=== PATIENT | female | born 1980 | race Caucasian/White ===

== ENCOUNTER → 2022-05-29 | Outpatient (CLI) | payer BC, SELFPAY ==
[2022-05-29 16:29] LABS: Erythrocyte Sedimentation Rate 2 mm/hr (0-30)
[2022-05-29 16:33] LABS: CRP < 2.90 mg/L (0.0-3.0)
[2022-05-31 15:08] LABS: Cytoplasmic Ab (C-ANCA) <1:20 titer (Neg:<1:20); Endomysial Antibody IgA Negative (Negative); Immunoglobulin A 245 mg/dL (87-352)
[2022-05-31 15:49] LABS: Perinuclear Ab (P-ANCA) <1:20 titer (Neg:<1:20); t-Transglutaminase IgA <2 U/mL (0-3)
[2022-05-31 16:08] LABS: Anti-Centromere B Ab <0.2 AI (0.0-0.9); Anti-Chromatin <0.2 AI (0.0-0.9); Anti-Jo <0.2 AI (0.0-0.9); Anti-Scleroderma-70 AB <0.2 AI (0.0-0.9); RNP Ab <0.2 AI (0.0-0.9); SJOGREN'S Anti-SS-A test < 0.2 AI (0.0-0.9); SJOGREN'S Anti-SS-B test < 0.2 AI (0.0-0.9); Smith Ab <0.2 AI (0.0-0.9)
[2022-05-31 20:52] LABS: Anti-dsDNA Ab 1 IU/mL (0-9)
== END | disposition home or self-care (01) ==
LOC: LAB 14:57
PROVIDERS: PCP Nurse Practitioner Primary Care; Visit Provider Nurse Practitioner Adult Health
DX: K90.0 Celiac disease (principal)
CPT/HCPCS: 36415; 82784; 83516; 85652; 86140; 86225; 86235; 86255; 86256

== ENCOUNTER → 2022-07-02 | Outpatient (CLI) | payer BC, SELFPAY ==
--- NOTE | 2022-07-02 13:04 | US_ITS ---
STUDY: ULTRASOUND OF THE FEMALE PELVIS - COMPLETE REASON FOR EXAM: Female, 41 years old. Menorrhagia LMP: 06/17/2022. TECHNIQUE: Transabdominal and Transvaginal TECHNICAL QUALITY: Adequate. COMPARISON: None. FINDINGS: The uterus is anteverted and is in a midline position. The uterus is enlarged and measures 11.2 cm x 6.7 cm x 5.5 cm. Normal uterine cervix. The endometrium measures 8.0 mm in thickness, and is heterogeneous (striated). There is no demonstrated endometrial mass. There is no demonstrated myometrial mass. I.U.D. - The patient does not have an I.U.D. The right ovary is visualized. The right ovary measures 3.5 cm x 3.9 cm x 1.8 cm. There is no right ovarian cyst or ovarian mass. There is no visualized right adnexal mass or complex lesion. There is normal arterial and normal venous vascularity. The left ovary is visualized. The left ovary measures 3.5 cm x 3.3 cm x 3.2 cm. There is no left ovarian cyst or ovarian mass. There is no visualized left adnexal mass or complex lesion. There is normal arterial and normal venous vascularity. There is no fluid in the cul-de-sac. The pre void volume of the bladder was 422 ml. US/Pelvic (Non ) IMPRESSION: Mild enlargement of the uterus. Electronically Signed: Johnnie Rosales MD at 15:28 EST ,
== END | disposition home or self-care (01) ==
PROVIDERS: PCP Nurse Practitioner Primary Care; Visit Provider Obstetrics & Gynecology
DX: N92.0 Excessive and frequent menstruation with regular cycle (principal); K62.5 Hemorrhage of anus and rectum; D50.0 Iron deficiency anemia secondary to blood loss (chronic)
CPT/HCPCS: 76830; 76856

== ENCOUNTER → 2022-07-19 | Outpatient (CLI) | payer BC, SELFPAY ==
[2022-07-22 15:08] LABS: Cytoplasmic Ab (C-ANCA) <1:20 titer (Neg:<1:20)
[2022-07-22 20:38] LABS: Perinuclear Ab (P-ANCA) <1:20 titer (Neg:<1:20)
== END | disposition home or self-care (01) ==
PROVIDERS: PCP Nurse Practitioner Primary Care; Visit Provider Nurse Practitioner Adult Health
DX: R76.8 Other specified abnormal immunological findings in serum (principal)
CPT/HCPCS: 36415; 86256

== ENCOUNTER 2022-07-29 11:21 | Day surgery (SDC) | payer BC, SELFPAY ==
[2022-07-29 11:47] LABS: Internal QC Validated? YES +Cl - CLEAR BKGD; Pregnancy, Urine Negative Negative
[2022-07-29] MEDS: Lactated Ringers 1,000 ML 15 ML IV (11:56)
[2022-07-29 11:58] VITALS: BP 108/59; PULSE 72; RESP 18; TEMP 36.9; O2SAT 100; BMI 23.8
--- NOTE | 2022-07-29 11:59 | HP.PCM_ITS ---
History and Physical Date of Admission: 07/29/22 41 F who presents to the office today referred by hematology for chronic iron deficiency anemia. She reports a lifelong hx of anemia, due to longstanding menorrhagia. More recently she had bright red blood with stools when she was constipated from oral iron. Had pain from passing large, hard stools at that time. No external hemorrhoids. She is interested in having a hysterectomy; has appt to establish with [facility] in 06/2022. In addition to the anemia, she feels a gynecological/hormonal issue may be contributing to her depression and skin concerns. Received IV iron March 2022. Continues to take oral iron once daily. Currently bowels are regular, helps to drink tea. Didn't tolerate miralax, tore my stomach up. No nausea, vomiting, heartburn, dysphagia, abd pain, diarrhea. Diagnosed with celiac disease about 7 yrs ago. Gets abd pain if she consumes gluten so she is very careful with her diet. She also avoids dairy. She is very fatigued. Only medication is ferrous sulfate, and stool softener as needed. 03/18/22 labs: vit b12 346, folate 3.9 05/08/22 labs: hgb 12.0, iron 97, ferr 39 ROS Const Constitutional: Positive for fatigue ENT ENT: No difficulty swallowing Gastro GI: Positive for abdominal pain, constipation and Blood in stool; No belching, bloating, change in bowel habits, change in stool character, coffee ground emesis, cramping, diarrhea, heartburn, difficulty swallowing, feeling full early, excessive flatus, incontinent of stools, Vomiting blood/hematemesis, loose stools, Black,tarry stools, nausea/dyspepsia, pain with swallowing, vomiting or other Musc Musculoskeletal: No joint pain Skin Skin: No yellowing of the eye or itchy eyes Psych Psychiatric: No anxiety and No depression Endo Endocrine: Positive for fatigue Aller/Imm Allergy/Immunologic: No itchy eyes Sergo/Lymp Hematologic/Lymphatic: No easy bleeding or easy bruising Exam Const General: cooperative and comfortable Nutritional Appearance: average body habitus Orientation: alert, awake and oriented x3 HENMT Head: normal to inspection Resp Effort & Inspection: normal respiratory effort GI Inspection: normal to inspection Quality Reporting Tobacco Screening ([facility] 138) Smoking Status: Former smoker Assessment and Plan Assessment and Plan (1) Celiac disease: ?Status:?Acute ?Plan: 41 yr old female with iron deficiency anemia that may be due to menorrhagia, recent rectal bleed with constipation due to PO iron, celiac disease. Schedule EGD and colonoscopy to eval for gastritis, PUD, celiac changes, polyps, colitis, hemorrhoids or other as cause of anemia. Labs to check celiac, inflammatory markers, VIVEK-comprehensive, ANCA; will call her with results f/u 2 wks after endoscopies (2) Rectal bleed: ?Status:?Chronic ?Plan: as above (3) Iron deficiency anemia due to chronic blood loss: ?Status:?Chronic ?Plan: as above ? ? ? Orders: Orders CRP Today K90.0 - Celiac disease ? Erythrocyte Sed Rate Today K90.0 - Celiac disease ? VIVEK Comprehensive Panel Today K90.0 - Celiac disease ? ANCA Today K90.0 - Celiac disease ? Celiac Disease Profile Today K90.0 - Celiac disease ? I have examined the patient and the H&P has been reviewed. There are no clinical changes since date of exam.
--- NOTE | 2022-07-29 12:30 | IMM_PTH ---
PATIENT: ZULEMA GARDNER LOC: EN U#:[id number] AGE/SX: 41/F ROOM: RE07/29/[address]: Dr. Jordy Connors DO : 1980 BED: DIS: 07/29/2022 SPEC #: [id number] RECD: 07/30/22 09:29 STATUS: TEQUILA REQ #: [id number] HAILEY: 07/29/22 12:[address]: Jordy Connors DEPT: IMMUNOHISTOCHEMISTRY RECD BY: Gini Lambert ENTERED: 07/30/22 09:29 SP TYPE: IMMUNO OTHR DR: Lalita Ortiz, LYMPHEDEMA THERAPIST-C Tissues: A - Stomach, NOS Procedures: H Pylori (initial) PHYSICIAN & INSTITUTION [place] [id number] SPECIMEN INFORMATION: Tissue Source: A ? Gastric biopsy Clinical Info: Celiac disease, rectal bleed, iron deficiency anemia Specimen Number: [id number] CPT code: 40981 METHODOLOGY: Deparaffinized sections of prefer/formalin-fixed tissue or PAP/DQ stained slides are incubated with monoclonal/polyclonal antibodies/oligonucleotide probes. Localization is made via biotin free immunoperoxidase method. Appropriate controls are performed and reacted as expected. Results on target cell population are indicated in the following table: RESULTS: ANTIBODY / CLONE RESULT Block A H Pylori (polyclonal) negative These tests were developed and their performance characteristics determined by [facility]. They may not have been cleared or approved by the U.S. Food and Drug Administration. The FDA has determined that such clearance or approval is not necessary. The above immunohistochemical/dualISH markers are ordered and reviewed by the Pathologist. INTERPRETATION: A. Gastric biopsy: Negative for Helicobacter pylori organisms. DEEDEE:eugenio 07/31/2022
--- NOTE | 2022-07-29 12:30 | EGD_PTH ---
PATIENT: ZULEMA GARDNER LOC: EN U#:[id number] AGE/SX: 41/F ROOM: RE07/29/[address]: Dr. Jordy Connors DO : 1980 BED: DIS: 07/29/2022 SPEC #: [id number] RECD: 07/29/22 13:51 STATUS: TEQUILA REQ #: [id number] HAILEY: 07/29/22 12:[address]: Jordy Connors DEPT: SURGICAL PATHOLOGY RECD BY: Shena Montano ENTERED: 07/30/22 08:30 SP TYPE: EGD BIOPSY OT DR: Lalita Ortiz, VETERINARY TECHNOLOGIST-C Tissues: A - Gastric mucous membrane B - Duodenum, NOS Procedures: Surgery Specimen Level IV HEADER OPERATION: Colonoscopy, EGD ([facility] [place]), pill camera placement and biopsy PRE-OP DIAGNOSIS: Celiac disease, rectal bleed, iron deficiency anemia TISSUE SUBMITTED: A ? Gastric biopsy and H. pylori and path, B ? Duodenum biopsy MICROSCOPIC DIAGNOSIS A. Gastric biopsy: Mild gastritis. See microscopic description and comment. B. Duodenum, biopsy: A fragment of duodenal mucosa, no pathologic diagnosis. See microscopic description and comment. SJ:euegnio 07/31/2022 COMMENT A. The results of immunohistochemistry for Helicobacter pylori will be reported separately ([id number]). B. A minute fragment of benign gastric mucosa is also noted in the specimen. MICROSCOPIC DESCRIPTION Slides are reviewed. A & B. The specimen shows fragments of gastric mucosa with chronic inflammatory cell infiltrates in the lamina propria consisting of lymphocytes and plasma cells, consistent with mild chronic gastritis. GROSS DESCRIPTION A - Received in fixative is one container labeled with the patient's name and designated gastric biopsy. The specimen consists of one irregular fragment of light barreto soft tissue that measures 0.5 x 0.5 x 0.1 cm. The specimen is totally submitted in one cassette. B - Received in fixative is one container labeled with the patient's name and designated duodenum biopsy. The specimen consists of two irregular fragments of light barreto soft tissue that in aggregate measure 0.7 x 0.5 x 0.1 cm. The specimen is totally submitted in one cassette. / AM:eugenio 07/30/2022 TC:3 CPT: 82721 x2
[2022-07-29 13:20] VITALS: BP 108/59; BP 92/63; PULSE 89; RESP 16; TEMP 36.2; O2SAT 96
[2022-07-29 13:25] VITALS: BP 108/59; BP 95/71; PULSE 90; RESP 16; O2SAT 99
--- NOTE | 2022-07-29 13:25 | OP.EGD_ITS ---
Patient Name: Sulma Reza Procedure Date: 07/29/2022 12:38 PM Date of : 1980 Age: 41 Procedure: Upper GI endoscopy Indications: Epigastric abdominal pain Providers: Jordy Connors DO Medicines: Monitored Anesthesia Care Patient Profile: This is a 41 year old female. Refer to note in patient chart for documentation of history and physical. Patient has symptoms of chronic abdominal cramping and chronic epigastric abdominal pain. Complications: No immediate complications. Procedure: Pre-Anesthesia Assessment: - Prior to the procedure, a History and Physical was performed, and patient medications and allergies were reviewed. The patient is competent. The risks and benefits of the procedure and the sedation options and risks were discussed with the patient. All questions were answered and informed consent was obtained. Patient identification and proposed procedure were verified by the physician in the pre-procedure area. Mental Status Examination: alert and oriented. Respiratory Examination: clear to auscultation. CV Examination: normal. Prophylactic Antibiotics: The patient does not require prophylactic antibiotics. Prior Anticoagulants: The patient has taken no previous anticoagulant or antiplatelet agents. After reviewing the risks and benefits, the patient was deemed in satisfactory condition to undergo the procedure. The anesthesia plan was to use minimal sedation / analgesia (anxiolysis). Immediately prior to administration of medications, the patient was re-assessed for adequacy to receive sedatives. The heart rate, respiratory rate, oxygen saturations, blood pressure, adequacy of pulmonary ventilation, and response to care were monitored throughout the procedure. The physical status of the patient was re-assessed after the procedure. After obtaining informed consent, the endoscope was passed under direct vision. Throughout the procedure, the patient's blood pressure, pulse, and oxygen saturations were monitored continuously. The gastroscope was introduced through the mouth, and advanced to the second part of duodenum. The upper GI endoscopy was accomplished without difficulty. The patient tolerated the procedure well. Findings: The examined esophagus was normal. The entire examined stomach was normal. The cardia and gastric fundus were normal on retroflexion. Patchy mild inflammation characterized by erosions and erythema was found in the duodenal bulb, in the first portion of the duodenum and in the second portion of the duodenum. Biopsies were taken with a cold forceps for histology. Verification of patient identification for the specimen was done. Estimated blood loss was minimal. Using the endoscope, the video capsule enteroscope was advanced into the first portion of the duodenum. The video capsule was positioned 60 cm from the incisors. Estimated blood loss was minimal. Localized mild inflammation characterized by erosions and erythema was found in the gastric body. Biopsies were taken with a cold forceps for histology. Verification of patient identification for the specimen was done. Estimated blood loss was minimal. Impression: - Normal esophagus. - Normal stomach. - Duodenitis. Biopsied. - Successful completion of the Video Capsule Enteroscope placement. Recommendation: - Discharge patient to home. - Resume previous diet. - Continue present medications. - Await pathology results. Procedure Code(s): --- Professional --- 95843, Esophagogastroduodenoscopy, flexible, transoral; with biopsy, single or multiple CPT copyright 2017 [employer]. All rights reserved. The codes documented in this report are preliminary and upon spreader review may be revised to meet current compliance requirements. Jordy Connors DO 07/29/2022 1:24:39 PM This report has been signed electronically. Number of Addenda: 0 Note Initiated On: 07/29/2022 12:38 PM
--- NOTE | 2022-07-29 13:25 | OP.CCLET_ITS ---
07/29/2022 Lalita Ortiz Re : Upper GI endoscopy procedure for Sulma Reza Dear Diana This procedure was performed on Friday, July 29, 2022. My impressions and recommendations are as follows: Impressions : - Normal esophagus. - Normal stomach. - Duodenitis. Biopsied. - Successful completion of the Video Capsule Enteroscope placement. Recommendations : - Discharge patient to home. - Resume previous diet. - Continue present medications. - Await pathology results. My findings are described in the full procedure note, which is enclosed. If I can be of further assistance, please feel free to contact me at . Sincerely, Jordy Connors, 07/29/2022 1:24:39 PM This report has been signed electronically.
--- NOTE | 2022-07-29 13:27 | OP.COLON_ITS ---
Patient Name: Sulma Reza Procedure Date: 07/29/2022 12:58 PM Date of : 1980 Age: 41 Procedure: Colonoscopy Indications: Generalized abdominal pain, Iron deficiency anemia Providers: Jordy Connors DO Medicines: Monitored Anesthesia Care Patient Profile: This is a 41 year old female. Refer to note in patient chart for documentation of history and physical. Patient has symptoms of chronic abdominal cramping and chronic epigastric abdominal pain. Last Colonoscopy: none. The patient's first colonoscopy is today. Complications: No immediate complications. Procedure: Pre-Anesthesia Assessment: - Prior to the procedure, a History and Physical was performed, and patient medications and allergies were reviewed. The patient is competent. The risks and benefits of the procedure and the sedation options and risks were discussed with the patient. All questions were answered and informed consent was obtained. Patient identification and proposed procedure were verified by the physician in the pre-procedure area. Mental Status Examination: alert and oriented. Respiratory Examination: clear to auscultation. CV Examination: normal. Prophylactic Antibiotics: The patient does not require prophylactic antibiotics. Prior Anticoagulants: The patient has taken no previous anticoagulant or antiplatelet agents. After reviewing the risks and benefits, the patient was deemed in satisfactory condition to undergo the procedure. The anesthesia plan was to use minimal sedation / analgesia (anxiolysis). Immediately prior to administration of medications, the patient was re-assessed for adequacy to receive sedatives. The heart rate, respiratory rate, oxygen saturations, blood pressure, adequacy of pulmonary ventilation, and response to care were monitored throughout the procedure. The physical status of the patient was re-assessed after the procedure. After I obtained informed consent, the scope was passed under direct vision. Throughout the procedure, the patient's blood pressure, pulse, and oxygen saturations were monitored continuously. The colonoscope was introduced through the anus and advanced to the terminal ileum. The colonoscopy was performed without difficulty. The patient tolerated the procedure well. The quality of the bowel preparation was good. Scope In: 12:55:19 PM Scope Withdrawal Time 0 hours 10 minutes 34 seconds Scope Out: 1:16:50 PM Total Procedure Duration Time 0 hours 21 minutes 31 seconds Findings: The perianal and digital rectal examinations were normal. The transverse colon was mildly tortuous. There was moderate spasm in the sigmoid colon. The terminal ileum appeared normal. Impression: - Tortuous colon. - Moderate colonic spasm consistent with irritable bowel syndrome. - The examined portion of the ileum was normal. - No specimens collected. Recommendation: - Discharge patient to home. - Resume previous diet. - Continue present medications. - Await pathology results. - Repeat colonoscopy in 10 years for screening purposes. Procedure Code(s): --- Professional --- 15968, Colonoscopy, flexible; diagnostic, including collection of specimen(s) by brushing or washing, when performed (separate procedure) CPT copyright 2017 [employer]. All rights reserved. The codes documented in this report are preliminary and upon autoclave operator review may be revised to meet current compliance requirements. Jordy Connors DO 07/29/2022 1:27:04 PM This report has been signed electronically. Number of Addenda: 0 Note Initiated On: 07/29/2022 12:58 PM
--- NOTE | 2022-07-29 13:27 | OP.CCLET_ITS ---
07/29/2022 Laltia Ortiz Re : Colonoscopy procedure for Sulma Reza Dear Diana This procedure was performed on Friday, July 29, 2022. My impressions and recommendations are as follows: Impressions : - Tortuous colon. - Moderate colonic spasm consistent with irritable bowel syndrome. - The examined portion of the ileum was normal. - No specimens collected. Recommendations : - Discharge patient to home. - Resume previous diet. - Continue present medications. - Await pathology results. - Repeat colonoscopy in 10 years for screening purposes. My findings are described in the full procedure note, which is enclosed. If I can be of further assistance, please feel free to contact me at . Sincerely, Jordy Connors, 07/29/2022 1:27:04 PM This report has been signed electronically.
[2022-07-29 13:30] VITALS: BP 108/59; BP 108/75; PULSE 89; RESP 16; O2SAT 99
[2022-07-29 13:35] VITALS: BP 106/81; BP 108/59; PULSE 91; RESP 16; TEMP 36.2; O2SAT 98
[2022-07-29 14:33] VITALS: BP 108/59
== END 2022-07-29 14:38 | disposition home or self-care (01) ==
LOC: EN 11:25 → AC 11:25
PROVIDERS: Anesthesiology; PCP Nurse Practitioner Primary Care; Referring Provider Nurse Practitioner Primary Care; Visit Provider Internal Medicine Gastroenterology
PROC: 0DJD8ZZ Inspection of Lower Intestinal Tract, Via Natural or Artificial Opening Endoscopic (ICD-10-PCS; CPT 45378; principal; 2022-07-29 12:25)
DX: K29.70 Gastritis, unspecified, without bleeding (principal); D50.0 Iron deficiency anemia secondary to blood loss (chronic); Z87.891 Personal history of nicotine dependence; K90.0 Celiac disease; R10.84 Generalized abdominal pain; K29.80 Duodenitis without bleeding; K92.1 Melena
CPT/HCPCS: 43239; 45378; 81025; 88305; 88342; J7120; J2405

== ENCOUNTER → 2022-08-13 | Outpatient (CLI) | payer BC, SELFPAY ==
--- NOTE | 2022-08-13 12:10 | CT_ITS ---
STUDY: CT ENTEROGRAPHY WITH CONTRAST REASON FOR EXAM: Female, 42 years old. Enteritis, iron deficiency anemia -- enterography. IBS AND BLOATING RADIATION DOSAGE (If Supplied By Facility): CTDIvol = ( 23.00 ) mGy, DLP = ( 1061.21 ) mGycm TECHNIQUE: Transaxial images were obtained from the dome of the diaphragm to the symphysis pubis with oral contrast. 450ml of Volumen was administered orally at 60 minutes and 40 minutes and 225ml of Volumen was administered 20 minutes and 10 minutes prior to scanning, to a total of 1,350ml. Oral and amp; IV BREEZA NEUTRAL and amp; 100mL Isovue-370 was administered intravenously. Sagittal and coronal images were reconstructed. TECHNICAL QUALITY: Image Quality: Satisfactory Small Bowel Distension: Adequate. Individualized dose optimization techniques were used for this CT. COMPARISON: None. FINDINGS: Bowel: Bowel wall thickening: Absent. Skip lesions: None. Vascularity: Normal. Enhancement: Normal. Fistula: None. Abscess: None. Other Findings: The lung bases are unremarkable. The visualized portions of the heart are within normal limits There is an 8.3 mm cyst in the medial midportion of the right lobe of the liver. Normal gallbladder and extrahepatic biliary system. Normal spleen. Normal pancreas. Normal bilateral adrenal glands. Normal right kidney. Normal left kidney. Normal visualized stomach. Large amount of fecal material is seen in the right hemicolon. The appendix is visualized and appears normal. Normal abdominal aorta. Normal interior vena cava. Normal retroperitoneum. Normal urinary bladder. Mildly enlarged heterogeneous appearance of the uterus suggestive of possible fibroid uterus. A follicular cyst is seen in the right ovary. Normal abdominal wall. Normal osseous structures. CT/Abdomen/Pelvis WITH Contrast IMPRESSION: Small cyst in the medial aspect of the right lobe of the liver. Large amount of fecal material is seen in the colon. Findings suggestive of enlarged heterogeneous uterus. Electronically Signed: Johnnie Rosales MD at 15:01 EST ,
== END | disposition home or self-care (01) ==
LOC: CT 12:08
PROVIDERS: PCP Nurse Practitioner Primary Care; Referring Provider Nurse Practitioner Adult Health; Visit Provider Nurse Practitioner Adult Health
DX: K52.9 Noninfective gastroenteritis and colitis, unspecified (principal); K90.0 Celiac disease; D50.0 Iron deficiency anemia secondary to blood loss (chronic)
CPT/HCPCS: 74177; Q9967

== ENCOUNTER → 2022-09-03 | Outpatient (CLI) | payer BC, SELFPAY ==
--- NOTE | 2022-09-03 | EMB_PTH ---
PATIENT: ZULEMA GARDNER LOC: [facility] U#:[id number] AGE/SX: 42/F ROOM: RE09/03/[address]: Dr. Susan Dan DO : 1980 BED: DIS: 09/03/2022 SPEC #: [id number] RECD: 09/03/22 13:30 STATUS: TEQUILA STACY #: [id number] HAILEY: 09/03/22 00:[address]: Susan Dan DEPT: SURGICAL PATHOLOGY RECD BY: Vick Gunn ENTERED: 09/03/22 13:30 SP TYPE: ENDOM BX/C OT DR: Lalita Ortiz, CHRONIC DISEASE MANAGER-C Tissues: Endometrium, NOS Procedures: Surgery Specimen Level IV HEADER OPERATION: Endometrial biopsy PRE-OP DIAGNOSIS: Menorrhagia TISSUE SUBMITTED: Endometrial lining MICROSCOPIC DIAGNOSIS Endometrial biopsy: Secretory endometrium. SJ:eugenio 09/04/2022 MICROSCOPIC DESCRIPTION Slides are reviewed. GROSS DESCRIPTION Received is one container labeled with the patient's name and not further designated. The specimen consists of multiple irregular fragments of barreto-pink soft tissue that in aggregate measure 1.5 x 1.5 x 0.1 cm. The specimen is totally submitted in one cassette. / SJ:eugenio 09/03/2022 TC:4 CPT: 60748
== END | disposition home or self-care (01) ==
LOC: LABSPEC 13:04
PROVIDERS: PCP Nurse Practitioner Primary Care; Referring Provider Obstetrics & Gynecology; Visit Provider Obstetrics & Gynecology
DX: N92.0 Excessive and frequent menstruation with regular cycle (principal)
CPT/HCPCS: 88305

== ENCOUNTER → 2022-09-12 | Outpatient (CLI) | payer BC, SELFPAY ==
--- NOTE | 2022-09-12 12:09 | BI_ITS ---
MAMMOGRAPHY - BILATERAL SCREENING REASON FOR EXAM: Female, 42 years old. Routine annual screening examination. PERTINENT HISTORY: Non-contributory. TECHNIQUE: Digital bilateral breast gloria (3D mammographic acquisition) in the CC and MLO projections. 2-D mediolateral oblique (MLO) and craniocaudad (CC) views of both breasts were obtained. CAD: Full Field Digital Mammography with Computer Added Detection was performed. COMPARISON: None. Baseline examination. FINDINGS: Breast Composition: The breasts are extremely dense, which lowers the sensitivity of mammography. There are no dominant masses or suspicious calcifications. No other significant abnormalities are identified. BI/SCRN MAMM (CAD)W/GLORIA BILAT IMPRESSION: Negative screening mammogram. Yearly followup mammogram recommended. (A) ASSESSMENT CATEGORY: BIRADS Category 1: Negative. A letter regarding these results will be sent to the patient by the facility within 30 days. Approximately 10% of breast cancers are not detected by mammography. A normal mammogram should not delay biopsy of a clinically suspicious abnormality. [id number] Electronically Signed: Johnnie Rosales MD at 12:59 EDT ,
== END | disposition home or self-care (01) ==
LOC: OPBI 12:08
PROVIDERS: PCP Nurse Practitioner Primary Care; Referring Provider Obstetrics & Gynecology; Visit Provider Obstetrics & Gynecology
DX: Z12.31 Encounter for screening mammogram for malignant neoplasm of breast (principal)
CPT/HCPCS: 77063; 77067